=== PATIENT | male | born 1980 | race Caucasian/White ===

== ENCOUNTER 2018-07-30 18:53 | Emergency (ER) | payer SELFPAY ==
[2018-07-30 19:05] VITALS: BP 141/77; PULSE 80; TEMP 97; BMI 31.6
[2018-07-30] MEDS ORDERED: KETOROLAC TROMETHAMINE 60 MG/2 ML VIAL IM ONE (19:24)
[2018-07-30] MEDS ORDERED: KETOROLAC TROMETHAMINE 60 MG/2 ML VIAL ONE (19:26)
--- NOTE | 2018-07-30 20:25 | PDOC ---
History of Present Illness - General Chief Complaint: Laceration Stated Complaint: LACERATION TO TOE Time Seen by Provider: 07/30/18 19:20 History Source: Patient Exam Limitations: Clinical Condition - History of Present Illness Initial Comments: 07/30/18 20:19 Patient with no significant past medical history present with complain of laceration to left great toe and second toe with a frame hand area and patient reported he was cleaning the grass and had frame hand on the ground running and machine moved and hit the toes. Reported increased pain with ambulation. Patient last tetanus vaccine was 2 years ago Timing/Duration: 1 hour Past History - Past Medical History Allergies/Adverse Reactions: Allergies Allergy/AdvReac Type Severity Reaction Status Date / Time No Known Allergies Allergy Verified 07/30/18 19:06 Home Medications: Ambulatory Orders Amox-Tr/K Cl [Augmentin - 875Mg Tablet] 1 tab PO BID #14 tablet 07/30/18 Ibuprofen 800 mg PO Q8H PRN #20 tablet 07/30/18 COPD: No - Suicide/Smoking/Psychosocial Hx Smoking History: Never smoked Review of Systems - Review of Systems Able to Perform ROS?: Yes Is the patient limited Bahamian proficient: No Constitutional: No: Weakness Respiratory: No: Symptoms reported Cardiac (ROS): No: Symptoms Reported ABD/GI: No: Symptoms Reported Musculoskeletal: Yes: See HPI, Muscle Pain (tip of left great toe and left 2nd toe) Integumentary: Yes: Other (laceration to tip of left great toe and top of 2nd toe) All Other Systems: Reviewed and Negative *Physical Exam - Vital Signs Last Vital Signs Temp Pulse Resp BP Pulse Ox 97 F L 80 18 141/77 98 07/30/18 19:00 07/30/18 19:00 07/30/18 19:00 07/30/18 19:00 07/30/18 19:00 - Physical Exam Comments: 07/30/18 20:22 GENERAL: Well developed, well nourished. Awake and alert. No acute distress. CARDIOVASCULAR: Regular rate and rhythm. No murmurs, rubs, or gallops. PULMONARY: No evidence of respiratory distress. Lungs clear to auscultation bilaterally. No wheezing, rales or rhonchi. ABDOMINAL: Soft. Non-tender. Non-distended. No rebound or guarding. No organomegaly. Normoactive bowel sounds MUSCULOSKELETAL : 4 cm linear laceration to tip of distal phalange of left great toe with moderate bleeding. another 1mm superfical laceration to dorsal aspect of distal phalange of 2nd toe with no bleeding. NEUROLOGICAL: Alert, awake, appropriate. No motor deficits in the lower extremities. Gait is normal without ataxia. PSYCHIATRIC: Cooperative. Good eye contact. Appropriate mood and affect. General Appearance: Yes: Nourished, Appropriately Dressed, Moderate Distress Procedures - Laceration/Wound Repair Left Distal Plantar Toe 1st digit Wound Length: 2.6 to 5.0 cm (4cm) Wound's Depth, Shape: linear, flap Irrigated w/ Saline: Yes Betadine Prep: Yes Anesthesia: 1% Lidocaine (2cc) Amount of Anesthetic (ccs): 2 Wound Debrided: minimal Wound Repaired With: Sutures Suture Size/Type: 4:0, nylon Number of Sutures: 6 Layer Closure: No Sterile Dressing Applied: Yes Splint Applied: No Sling Applied: No ED Treatment Course - RADIOLOGY Radiology Studies Ordered: Category Date Time Status FOOT-LEFT [RAD] Stat Radiology 07/30/18 20:04 Ordered TOE(S) LEFT [RAD] Stat Radiology 07/30/18 20:04 Ordered - Medications Given in the ED: ED Medications Discontinued Medications Generic Name Dose Route Start Last Admin Trade Name Freq PRN Reason Stop Dose Admin Ketorolac Tromethamine 60 mg 07/30/18 19:24 07/30/18 19:30 Toradol Injection - IM 07/30/18 19:25 60 mg ONCE ONE Administration Medical Decision Making - Medical Decision Making 07/30/18 20:27 Patient with no significant past medical history presenting with laceration to distal aspect of left great toe at its tip of the toe with lawnmower. Wound care done and wound closed with 6 interrupted 4 nylon sutures. Wound covered with adhesive bandage. X-ray of right foot and great toe ordered. Toradol 60 mg IM given for pain 07/30/18 20:33 x-rays of left foot and toes negative. patient stable for home discharge with follow-up in 1 week *DC/Admit/Observation/Transfer Diagnosis at time of Disposition: Laceration of great toe of left foot Qualifiers: Encounter type: initial encounter Damage to nail status: without damage Foreign body presence: without foreign body Qualified Code(s): S91.112A - Laceration without foreign body of left great toe without damage to nail, initial encounter Laceration of second toe, left Qualifiers: Encounter type: initial encounter Qualified Code(s): S91.115A - Laceration without foreign body of left lesser toe(s) without damage to nail, initial encounter - Discharge Dispostion Disposition: HOME Condition at time of disposition: Stable Decision to Admit order: No - Prescriptions Prescriptions: Amox-Tr/K Cl [Augmentin - 875Mg Tablet] 1 tab PO BID #14 tablet Ibuprofen 800 mg PO Q8H PRN #20 tablet PRN Reason: pain - Referrals - Patient Instructions Printed Discharge Instructions: DI for Laceration Repair Additional Instructions: Your x-rays done was normal .Take medications as prescribed. Follow-up in one week for suture removal. - Post Discharge Activity
== END 2018-07-30 20:42 | disposition home or self-care (01) ==
LOC: JERFT 18:53
PROC: 0HQNXZZ Repair Left Foot Skin, External Approach (ICD-10-PCS; principal; 2018-07-30)
PROC: 3E0233Z Introduction of Anti-inflammatory into Muscle, Percutaneous Approach (ICD-10-PCS; 2018-07-30)
DX: S91.112A Laceration without foreign body of left great toe without damage to nail, initial encounter (principal); S91.115A Laceration without foreign body of left lesser toe(s) without damage to nail, initial encounter; W28.XXXA Contact with powered lawn mower, initial encounter; Y93.H2 Activity, gardening and landscaping; Y92.89 Other specified places as the place of occurrence of the external cause; Y99.8 Other external cause status
CPT/HCPCS: 73630-TC-LT; 73660-TC-LT-FY; 99281-25

== ENCOUNTER 2018-08-07 19:26 | Emergency (ER) | payer SELFPAY ==
[2018-08-07 19:33] VITALS: BP 121/67; PULSE 72; TEMP 98.2; BMI 31.6
--- NOTE | 2018-08-07 20:18 | PDOC ---
Suture Removal/Wound Check HPI - History of Present Illness Chief Complaint: Suture/Staple Removal(Here) Stated Complaint: Suture/Staple Removal(Here) Time Seen by Provider: 08/07/18 19:48 History Source: Yes: Patient Exam Limitations: Yes: No Limitations Treated at: [facility] ED - Onset of Previous Treatment Select one - (for the option above): Days (7) Past History - Past Medical History Allergies/Adverse Reactions: Allergies Allergy/AdvReac Type Severity Reaction Status Date / Time No Known Allergies Allergy Verified 08/07/18 19:33 Home Medications: Ambulatory Orders Amox-Tr/K Cl [Augmentin - 875Mg Tablet] 1 tab PO BID #14 tablet 07/30/18 Ibuprofen 800 mg PO Q8H PRN #20 tablet 07/30/18 COPD: No - Suicide/Smoking/Psychosocial Hx Smoking History: Never smoked Suture Removal/Wound Check PE - Physical Exam Laceration/Wound Check Symptoms: reports: None Location of Laceration/Wound: left: Toe *Review of Systems - Review of Systems Able to Perform ROS?: Yes Constitutional: No: Fever Integumentary: Yes: Other (no redness, pus) *Physical Exam - Vital Signs Last Vital Signs Temp Pulse Resp BP Pulse Ox 98.2 F 72 18 121/67 98 08/07/18 19:32 08/07/18 19:32 08/07/18 19:32 08/07/18 19:32 08/07/18 19:32 - Physical Exam General Appearance: Yes: Nourished Integumentary: positive: Other (scab great toe, left, no signs of infection, no discharge. sutures in place) Neurologic: positive: Normal Mood/Affect Medical Decision Making - Medical Decision Making 08/07/18 20:15 Patient with laceration prior to left great toe from lawnmower that was sutured and he took antibiotics. Patient here for suture removal. No complaints. Sutures removed without difficulty. Patient was made aware that skin/scab may come off and wound will heal from underneath if that happens *DC/Admit/Observation/Transfer Diagnosis at time of Disposition: Visit for suture removal - Discharge Dispostion Disposition: HOME Condition at time of disposition: Stable Decision to Admit order: No - Referrals - Patient Instructions Printed Discharge Instructions: Skin Wound Additional Instructions: Clean with soap and water 2-3 times daily, apply bacitracin Have her reevaluated if redness, pus, fever or getting worse Followup with your doctor Scab and skin may come off, wound will heal underneath. If any other concerns, return to the ER or see your doctor - Post Discharge Activity
== END 2018-08-07 20:29 | disposition home or self-care (01) ==
LOC: JERFT 19:26
DX: Z48.817 Encounter for surgical aftercare following surgery on the skin and subcutaneous tissue (principal); Z48.02 Encounter for removal of sutures
CPT/HCPCS: 99281-25

== ENCOUNTER → 2023-06-22 | Emergency (ER) | payer SELFPAY ==
[2023-06-22 18:12] VITALS: BP 129/81; PULSE 79; RESP 18; TEMP 98.5; BMI 38.2
== END | disposition left against medical advice (07) ==
LOC: JERFT 18:03 → JER 18:03
DX: R10.9 Unspecified abdominal pain (principal)
CPT/HCPCS: 99281-25